=== PATIENT | female | born 1990 | race Caucasian/White ===

== ENCOUNTER 2019-03-30 08:48 | Emergency (ER) | payer OTHER ==
[2019-03-30 09:17] VITALS: BP 115/68
--- NOTE | 2019-03-30 09:39 | UC ---
Eye Complaint HPI - HPI Summary HPI Summary: bilateral eye irritation x 1 day woke up this morning with bilateral itchy eyes mild redness, no discharge, mild pain, no change in vision , no photophobia - History of Current Complaint Chief Complaint: UCEye Stated Complaint: BILATERAL EYE CONCERN Time Seen by Provider: 03/30/19 09:28 Hx Obtained From: Patient Hx Last Menstrual Period: does not have reg periods. has nexplamon ?: Yes Onset/Duration: Gradual Onset, Lasting Days - 1, Still Present Timing: Constant Severity Initially: Moderate Severity Currently: Moderate Pain Intensity: 5 Location of Injury: Conjunctiva Aggravating Factor(s): Nothing Alleviating Factor(s): Nothing Associated Signs And Symptoms: Negative: Photophobia, Drainage (Clear), Drainage (Purulent), Vision Impairment Bilateral, Vision Impairment Right, Vision Impairment Left, Fever, Swelling - Allergies/Home Medications Allergies/Adverse Reactions: Allergies Allergy/AdvReac Type Severity Reaction Status Date / Time dog fur Allergy Sneezing Uncoded 03/30/19 09:08 PMH/Surg Hx/FS Hx/Imm Hx Previously Healthy: Yes - Surgical History Surgical History: Yes Surgery Procedure, Year, and Place: x 2 - Family History Known Family History: Positive: Other - denies FMH of COPD Negative: Diabetes - Social History Alcohol Use: Occasionally Substance Use Type: None Smoking Status (MU): Light Every Day Tobacco Smoker Type: Cigarettes Amount Used/How Often: 4 cigs per day Review of Systems All Other Systems Reviewed And Are Negative: Yes Constitutional: Positive: Negative Skin: Positive: Negative Eyes: Positive: Eye Redness ENT: Positive: Negative Cardiovascular: Positive: Negative Gastrointestinal: Positive: Negative Is Patient Immunocompromised?: No Physical Exam Triage Information Reviewed: Yes Appearance: Well-Appearing, No Pain Distress, Well-Nourished Vital Signs: Initial Vital Signs Temp 98.1 F 03/30/19 09:09 Pulse 72 03/30/19 09:09 Resp 16 03/30/19 09:09 BP 115/68 03/30/19 09:09 Pulse Ox 98 03/30/19 09:09 Vital Signs Reviewed: Yes Eye Exam: Normal Eyes: Positive: Conjunctiva Inflamed - mild bilateral eyethema. Negative: Discharge ENT Exam: Normal ENT: Positive: Normal ENT inspection, Hearing grossly normal, Pharynx normal Neck exam: Normal Neck: Positive: Supple, Nontender, No Lymphadenopathy Respiratory: Positive: Chest non-tender, Lungs clear, Normal breath sounds Cardiovascular: Positive: RRR, No Murmur, Pulses Normal Skin Exam: Normal Eye Complaint Course/Dx - Differential Dx/Diagnosis Provider Diagnosis: Allergic conjunctivitis Discharge - Sign-Out/Discharge Documenting (check all that apply): Patient Departure All imaging exams completed and their final reports reviewed: No Studies - Discharge Plan Condition: Stable Disposition: HOME Prescriptions: Olopatadine 0.2% (NF) [Pataday 0.2% (NF)] 1 drop BOTH EYES DAILY WITH MEAL #1 btl Patient Education Materials: Conjunctivitis (ED) Forms: *Work Release Referrals: No Primary Care Phys,NOPCP [Primary Care Provider] - If Needed Additional Instructions: allergic conjunctivitis - Billing Disposition and Condition Condition: STABLE Disposition: Home
== END 2019-03-30 09:42 | disposition home or self-care (01) ==
LOC: UCCORT 08:48
DX: H10.13 Acute atopic conjunctivitis, bilateral (principal); J30.81 Allergic rhinitis due to animal (cat) (dog) hair and dander; F17.210 Nicotine dependence, cigarettes, uncomplicated
CPT/HCPCS: 99212; G0463

== ENCOUNTER 2019-04-17 14:49 | Emergency (ER) | payer OTHER ==
[2019-04-17 15:06] VITALS: BP 111/68
--- NOTE | 2019-04-17 15:12 | UC ---
Dental HPI - HPI Summary HPI Summary: 28-year-old female with left-sided facial swelling as of midnight this morning. She denies any toothache. Denies any fever. - History of Current Complaint Chief Complaint: UCDentalProblem Stated Complaint: LEFT SIDED FACIAL SWELLING Time Seen by Provider: 04/17/19 15:03 Hx Obtained From: Patient Hx Last Menstrual Period: nexplanon ?: No Onset/Duration: Gradual Onset, Still Present, Worse Since - Worse since midnight this morning. Severity: Mild Pain Intensity: 6 Aggravating Factor(s): Nothing Alleviating Factor(s): Nothing - Allergies/Home Medications Allergies/Adverse Reactions: Allergies Allergy/AdvReac Type Severity Reaction Status Date / Time dog fur Allergy Sneezing Uncoded 04/17/19 15:00 Home Medications: Home Medications Acetaminophen [Tylenol Extra Strength] 100 mg PO Q6H PRN 04/17/19 [History Confirmed 04/17/19] PMH/Surg Hx/FS Hx/Imm Hx Previously Healthy: Yes - Surgical History Surgical History: Yes Surgery Procedure, Year, and Place: x 2 - Family History Known Family History: Positive: Other - denies FMH of COPD Negative: Diabetes - Social History Alcohol Use: Occasionally Substance Use Type: None Smoking Status (MU): Light Every Day Tobacco Smoker Type: Cigarettes Amount Used/How Often: 4 cigs per day Length of Time of Smoking/Using Tobacco: since 2008 Review of Systems All Other Systems Reviewed And Are Negative: Yes Skin: Positive: Other - Patient has mild swelling to left facial area, not including the orbit ENT: Positive: Other - Patient denies any toothache. Is Patient Immunocompromised?: No Physical Exam Triage Information Reviewed: Yes Appearance: Well-Appearing, No Pain Distress, Well-Nourished Vital Signs: Initial Vital Signs Temp 97.9 F 04/17/19 15:03 Pulse 63 04/17/19 15:03 Resp 16 04/17/19 15:03 BP 111/68 04/17/19 15:03 Pulse Ox 100 04/17/19 15:03 Vital Signs Reviewed: Yes Eyes: Positive: Conjunctiva Clear ENT: Positive: Hearing grossly normal, Pharynx normal, TMs normal, Uvula midline Dental: Positive: Other: - The left lower distal molar is showing only usp and it's embedded into the gumline but no tenderness on palpation and no evidence of an abscess. The upper distal to molars are surrounded by swollen gumline no evidence of abscess and no erythema. Also nontender on palpation. Neck: Positive: Supple, Nontender, No Lymphadenopathy Respiratory: Positive: Lungs clear, Normal breath sounds, No respiratory distress, No accessory muscle use Cardiovascular: Positive: RRR, No Murmur, Pulses Normal, Brisk Capillary Refill Musculoskeletal Exam: Normal Neurological Exam: Normal Psychological Exam: Normal Skin Exam: Normal Dental Complaint Course/Dx - Course Course Of Treatment: 28-year-old female with what I believe is the beginning of a possible dental abscess with the swollen gumline superior and inferior with the distal molars. I'm starting her on Augmentin 875 mg by mouth twice a day and to follow-up with the dentist later this week. She is also given Motrin 600 mg by mouth every 8 hours with food. - Differential Dx/Diagnosis Provider Diagnosis: Dental abscess Discharge - Sign-Out/Discharge Documenting (check all that apply): Patient Departure All imaging exams completed and their final reports reviewed: No Studies - Discharge Plan Condition: Fair Disposition: HOME Prescriptions: Amoxicillin/Clavulanate TAB* [Augmentin TAB 875*] 875 mg PO BID 10 Days #20 tab Ibuprofen TAB* [Motrin TAB* 600 MG] 600 mg PO Q8H PRN #21 tab PRN Reason: Pain Patient Education Materials: Dental Abscess (ED) Referrals: Heide Beach MD [Primary Care Provider] - Additional Instructions: Call your doctor today or tomorrow and make an appointment to be rechecked later this week. Take the Augmentin with food. Take the Motrin with food and may alternate Motrin every 8 hours and Tylenol every 4 hours for pain. - Billing Disposition and Condition Condition: FAIR Disposition: Home
== END 2019-04-17 15:19 | disposition home or self-care (01) ==
LOC: UCCORT 14:49
DX: K04.7 Periapical abscess without sinus (principal); F17.210 Nicotine dependence, cigarettes, uncomplicated
CPT/HCPCS: 99212; G0463